=== PATIENT | female | born 1970 | race African-American/Black ===

== ENCOUNTER 2024-11-07 18:04 | Emergency (ER) | payer OTHER, SELFPAY ==
--- NOTE | ~2024-11-07 | XR_ITS ---
XR foot RT min 3V 11/07/2024 19:06 INDICATION: Right foot pain PROCEDURE: 4 views right foot COMPARISON: No prior studies for comparison. FINDINGS: Fracture, dislocation or subluxation is not identified. The soft tissues appear within normal limits. No foreign bodies are identified. IMPRESSION: 1: NO ACUTE BONE OR JOINT ABNORMALITY IDENTIFIED. Reviewed, dictated and finalized at location O.
[2024-11-07 18:16] VITALS: BP 146/75; PULSE 71; RESP 18; TEMP 36.7; O2SAT 100
--- NOTE | 2024-11-07 19:45 | ED.EXTPRO ---
HPI - Extremity Problem General Chief complaint: Extremity Problem,Nontraumatic Stated complaint: Right Foot Swollen Time Seen by Provider: 11/07/24 18:30 Source: patient and RN notes reviewed Mode of arrival: ambulatory Limitations: no limitations History of Present Illness HPI Narrative: 54-year-old female presents Express Care complaining of right foot pain and swelling for the last week. Patient said started with pain near the MTP joint of her 1st great toe. Since then she has notice increased redness and swelling to her foot. Patient denies any falls or injuries. Patient has a history of gout or hypertension. Patient denies any fevers, body aches, chills, or any other symptoms. Patient tried Tylenol ibuprofen with some relief. Related Data Home Medications ?Medication ?Instructions ?Recorded ?Confirmed ?Last Taken ?Type estradiol 0.0375 mg/24 hr 1 patch transdermal 2XW 07/01/20 07/29/20 Unknown History semiweekly transdermal patch levothyroxine 25 mcg capsule 25 mcg PO DAILY 07/01/20 07/29/20 Unknown History naproxen 500 mg tablet 500 mg PO BID 07/01/20 07/29/20 Unknown History Allergies Allergy/AdvReac Type Severity Reaction Status Date / Time acetaminophen (From Percocet) Allergy Unknown unknown Verified 11/07/24 18:29 hydrocodone (From Vicodin) Allergy Unknown unknown Verified 11/07/24 18:29 oxycodone (From Percocet) Allergy Unknown unknown Verified 11/07/24 18:29 Review of Systems Review of Systems: CONSTITUTIONAL: Denies fever, chills, or sweats. EYES: Denies visual changes, redness, or discharge. ENT: Denies rhinorrhea, congestion, sore throat, or otalgia. CARDIOVASCULAR: Denies chest pain, palpitations, or edema. RESPIRATORY: Denies cough or dyspnea. GASTROINTESTINAL: Denies abdominal pain, nausea, vomiting, or diarrhea. GENITOURINARY: Denies dysuria or hematuria. SKIN: Denies rash, wound, or itching. MUSCULOSKELETAL: Denies back pain, joint pain, or myalgia. Positive for right foot pain and swelling NEUROLOGIC: Denies headache, numbness, or weakness. PSYCHIATRIC: Denies anxiety or depression. All other systems reviewed are negative, except as documented in HPI. [facility] Social History Social History (Reviewed 11/07/24 @ 19:46 by SONG Hogue Smoking status: Never smoker Alcohol intake: never Substance use: never Comments At the time of my signature, I reviewed and agree with the nursing past medical, surgical, social, and family history. There is no relevant family history pertinent to the patient complaint. Exam Narrative: GENERAL: This is a well-nourished, well-developed adult, in no apparent distress. They are non ill-appearing, nontoxic appearing. HEAD: normocephalic, atraumatic. EYES: Sclera clear/white. Vision is grossly intact. Conjunctiva normal. Extraocular movement intact. EARS: External ears normal Hearing grossly intact. NOSE: External nose normal THROAT: Mucous membranes moist NECK: Neck supple CARDIOVASCULAR: Regular rate and rhythm RESPIRATORY: Respiratory rate normal, respiratory effort nonlabored, no respiratory distress NEURO: awake, alert, and oriented to person, place and time. There were no obvious focal neurologic abnormalities. EXTREMITIES: Right foot: No obvious deformity, injury, bruising. Right foot is erythematous. No area of fluctuance, no induration. No exudate. No wounds present. It Is tender to palpate the 1st metatarsal. Normal range of motion. Capillary refill less than 3 seconds. Right pedal Pulse 2 +palpable. Normal sensation. Neurovascular status intact distal injury. Patient able to wiggle her toes. BACK: Nontender without deformity. Course Course Emergency Course: Portions of this record may have been created with voice recognition software Level of Care: Express Care Visit Vital Signs Vital signs: Vital Signs Temperature 98.0 F 11/07/24 18:16 Pulse Rate 71 11/07/24 18:16 Respiratory Rate 18 11/07/24 18:16 Blood Pressure 146/75 H 11/07/24 18:16 Pulse Oximetry 100 11/07/24 18:16 Oxygen Delivery Room Air 11/07/24 18:16 Temperature 98.0 F 11/07/24 18:16 Pulse Rate 71 11/07/24 18:16 Respiratory Rate 18 11/07/24 18:16 Blood Pressure 146/75 H 11/07/24 18:16 Pulse Oximetry 100 11/07/24 18:16 Oxygen Delivery Room Air 11/07/24 18:16 Reviewed MDM - Extremity (Nontraumatic) MDM Narrative Medical decision making narrative: Gout score 5. X-ray of right foot is negative for any fractures or acute findings. Does not appear to be cellulitis. Skin is not hot to touch, not indurated, no wound to present. However gout cannot be excluded for patient given risk factors. Will try course of prednisone. Discussed physical exam findings. Advised supportive measures and signs/symptoms to go to the ER. Pt is appropriate for outpt treatment and f/u. Differential Diagnosis Differential diagnosis: Likely gout, cellulitis and other (Arthritis, foot fracture, foot sprain) Imaging Data Radiologist's impression: ITS Impressions Foot X-Ray 11/07/24 19:11 IMPRESSION: 1: NO ACUTE BONE OR JOINT ABNORMALITY IDENTIFIED. Critical Care Time Critical Care Time Critical Care Time: No Discharge Plan Discharge Clinical Impression: Arthralgia of foot, right Patient Disposition: Home Condition: Stable Instructions: Antibiotic Form, Gout (ED) Additional Instructions: X-ray right foot is negative for any fractures or acute findings. It may be possible you have gout. Take the prednisone as directed. Take it with food. Rest and elevate the leg; bear weight as tolerated Apply ice 15-20 minute intervals several times a day Keep it wrapped with JORY or use a soft ankle splint You may take ibuprofen 600 mg to 800 mg every 6-8 hours. Do not exceed more than 800 mg of ibuprofen per dose. Do not exceed more than 3200 mg ibuprofen in a day. You may take up to 1000 mg Tylenol every 6-8 hours. Do not exceed 1000 mg per dose, do exceed more than 4000 mg of Tylenol in a day. Follow up with your primary care provider as needed in 1-2 weeks Go To the ER if he developed worsening redness, swelling, pain, fevers, drainage, or any serious concerns. Patient Language: Belarusian Prescriptions: New prednisone 20 mg tablet 40 mg PO DAILY 5 Days Qty: 10 0RF No Action levothyroxine 25 mcg capsule 25 mcg PO DAILY estradiol 0.0375 mg/24 hr patch semiweekly 1 patch transdermal 2XW Rx Instructions: apply 1 patch for 3 days alternating with 1 patch for 4 days each week for 3 wks per 4-wk cycle naproxen 500 mg tablet 500 mg PO BID Follow-up/Referrals: Adan Pompa MD [Primary Care Provider, [facility]] Time of Disposition: 19:21
== END 2024-11-07 19:24 | disposition home or self-care (01) ==
PROVIDERS: PCP Emergency Medicine
DX: M25.571 Pain in right ankle and joints of right foot (principal); E03.9 Hypothyroidism, unspecified
CPT/HCPCS: 73630; 99213; G0463